=== PATIENT | male | born 1985 | race Caucasian/White ===

== ENCOUNTER 2025-03-06 14:17 | Emergency (ER) | payer SELFPAY ==
[~2025-03-06] VITALS: Ht 182.9 cm; Wt 91.0 kg
[2025-03-06 14:19] VITALS: BP 134/87; PULSE 68; RESP 18; TEMP 36.3; O2SAT 100
[2025-03-06 15:31] LABS: HEMATOCRIT. 43.9 % (42.0-52.0); HEMOGLOBIN. 14.7 g/dL (14.0-18.0); MEAN PLATELET VOLUME 8.2 fl (7.4-10.4); PLATELET 212 x1000/uL (130-400); RED BLOOD CELL COUNT 4.79 mill/uL (4.7-6.1); RED CELL DISTRIBUTION WIDTH 13.2 % (11.6-14.6)
[2025-03-06 15:47] LABS: CREATININE 0.9 mg/dL (0.6-1.3); ETHANOL BLOOD < 10 mg/dL (<10); UREA NITROGEN BLOOD 9 mg/dL (9-23)
[2025-03-06 15:49] LABS: ASPARTATE AMINOTRANSFERASE 28 IU/L (<34); BILIRUBIN TOTAL 0.3 mg/dL (0.1-1.0); PROTEIN TOTAL 7.2 g/dL (6.0-8.3)
[2025-03-06] MEDS ORDERED: MELA5TAB19 MT (16:00)
[2025-03-06 17:45] LABS: LYMPHOCYTES % MANUAL 22.0 % (20.0-50.0); MONOCYTES % MANUAL 14.0 % (2.0-8.0); NEUTROPHILS % MANUAL 64.0 % (45.0-75.0); PLATELET ESTIMATE NORMAL
== END 2025-03-06 16:47 | disposition home or self-care (01) ==
LOC: ER 14:17
DX: G47.00 Insomnia, unspecified (principal); R53.1 Weakness
CPT/HCPCS: 36415; 80053; 80320; 85025; 99283; G0480